=== PATIENT | female | born 1975 | race African-American/Black ===

== ENCOUNTER 2016-08-03 05:21 | Emergency (ER) | payer OTHER ==
[~2016-08-03] VITALS: Ht 152.4 cm; Wt 68.0 kg
[~2016-08-03 05:21] MED LIST: NAPROSYN500 MG PO; NOHOMEMEDICATIONS; TUSSIONEX PENN473 ML PO; ZOFRAN ODT4 MG PO; ZPAK PO
[2016-08-03 06:14] LABS: HEMATOCRIT 38.2 % (37.0-47.0); HEMOGLOBIN 13.2 gm/dL (12.0-15.0); MCH 30.3 pg (26.0-34.0); MCHC 34.4 % (28.0-37.0); MCV 87.9 fL (80.0-100.0); PLATELET COUNT 289 thou/uL (150-400); RBC 4.34 mil/uL (4.20-5.00); RDW 13.7 % (10.5-14.5); WBC 7.2 thou/uL (4.0-11.0)
[2016-08-03 06:24] LABS: CALCIUM 8.8 mg/dL (8.5-10.1); CREATININE 0.9 mg/dL (0.6-1.3); POTASSIUM 3.7 mmol/L (3.5-5.1)
[2016-08-03 06:25] LABS: ALBUMIN 3.7 g/dL (3.4-5.0); MANUAL DIFF YES; TOTAL BILIRUBIN 0.3 mg/dL (<0.1-1.0); TOTAL PROTEIN 7.5 g/dL (6.4-8.2)
[2016-08-03 06:42] LABS: URINE BILIRUBIN NEGATIVE (Negative); URINE BLOOD 3+ (Negative); URINE COLOR YELLOW; URINE GLUCOSE-RANDOM* NEGATIVE (Negative); URINE KETONES NEGATIVE (Negative); URINE LEUKOCYTES-REFLEX NEGATIVE (Negative); URINE PROTEIN (DIPSTICK) NEGATIVE (Negative); URINE UROBILINOGEN 0.2 E.U./dl (0.2-1.0)
[2016-08-03 06:50] LABS: AMP/METHAMP Negative (Negative); BARBITURATES Negative (Negative); BENZODIAZEPINES Negative (Negative); COCAINE Negative (Negative); METHADONE Negative (Negative); OPIATES Negative (Negative); PCP Negative (Negative); THC POSITIVE (Negative)
[2016-08-03 06:55] LABS: SQUAMOUS 0-3 Few /LPF (0-3); URINE WBC-REFLEX 0-5 Rare /HPF (0-5)
[2016-08-03 06:56] LABS: CASTS None Seen /LPF (None Seen); CRYSTALS None Seen /LPF (None Seen)
[2016-08-03] MEDS ORDERED: TORADOL 10 MG T10 MG PO (07:33)
[2016-08-03] MEDS ORDERED: ONDANSETRON HCL4 M2 PO (07:33)
[2016-08-03 07:36] LABS: ABSOLUTE NEUTROPHILS 3.5 thou/uL (1.4-8.2); TOTAL CELL COUNT 100
[2016-08-03 07:37] LABS: ANISOCYTOSIS SLIGHT
[2016-08-06 13:07] LABS: CHLAMYDIA TRACHOMATIS-PCR Negative (Negative); NEISSERIA GONORRHEA-PCR Negative (Negative)
== END 2016-08-03 08:08 | disposition home or self-care (01) ==
LOC: ER 05:21
PROVIDERS: Emergency Medicine
DX: R10.30 Lower abdominal pain, unspecified (principal); R11.2 Nausea with vomiting, unspecified; R19.7 Diarrhea, unspecified; Z98.890 Other specified postprocedural states; F17.210 Nicotine dependence, cigarettes, uncomplicated; F10.99 Alcohol use, unspecified with unspecified alcohol-induced disorder; F12.10 Cannabis abuse, uncomplicated

== ENCOUNTER 2017-06-06 16:43 | Emergency (ER) | payer OTHER ==
[~2017-06-06] VITALS: Ht 152.4 cm; Wt 64.0 kg
[~2017-06-06 16:43] MED LIST changes: +ONDANSETRON HCL4 M2 PO; +TORADOL 10 MG T10 MG PO
[2017-06-06 17:05] LABS: URINE BILIRUBIN NEGATIVE (Negative); URINE BLOOD 3+ (Negative); URINE COLOR YELLOW; URINE GLUCOSE-RANDOM* NEGATIVE (Negative); URINE KETONES NEGATIVE (Negative); URINE LEUKOCYTES-REFLEX NEGATIVE (Negative); URINE PROTEIN (DIPSTICK) NEGATIVE (Negative); URINE SPECIFIC GRAVITY 1.015 (1.003-1.035)
[2017-06-06 17:09] LABS: CASTS None Seen /LPF (None Seen); SQUAMOUS 4-10 Moderate /LPF (0-3); URINE WBC-REFLEX 0-5 Rare /HPF (0-5)
[2017-06-06 17:10] LABS: CRYSTALS None Seen /LPF (None Seen)
[2017-06-06 17:16] LABS: ABSOLUTE NEUTROPHILS 2.4 thou/uL (1.4-8.2); BASOPHILS 0.9 % (0.0-2.0); EOSINOPHILS 1.5 % (0.0-3.0); HEMATOCRIT 41.1 % (37.0-47.0); HEMOGLOBIN 13.6 gm/dL (12.0-15.0); LYMPHOCYTES 46.9 % (24.0-44.0); MCH 30.1 pg (26.0-34.0); MCHC 33.2 g/dL (28.0-37.0); MCV 90.6 fL (80.0-100.0); PLATELET COUNT 278 thou/uL (150-400); POLYS 40.7 % (36.0-66.0); RBC 4.54 mil/uL (4.20-5.00); RDW 13.8 % (10.5-14.5); WBC 5.9 thou/uL (4.0-11.0)
[2017-06-06 17:17] LABS: MANUAL DIFF NO
[2017-06-06 17:25] LABS: CALCIUM 9.1 mg/dL (8.5-10.1); CREATININE 0.8 mg/dL (0.6-1.0); POTASSIUM 3.8 mmol/L (3.5-5.1)
[2017-06-06 17:32] LABS: ALBUMIN 3.8 g/dL (3.4-5.0); TOTAL BILIRUBIN 0.3 mg/dL (<0.1-1.0); TOTAL PROTEIN 7.6 g/dL (6.4-8.2)
[2017-06-06] MEDS ORDERED: HYDROCODONE-AP1 EAC6 PO (18:21)
[2017-06-06] MEDS ORDERED: IBUPROFEN 600600 M1 PO (18:21)
[2017-06-06] MEDS ORDERED: ZOFRAN ODT4 M1 PO (18:26)
== END 2017-06-06 18:49 | disposition home or self-care (01) ==
LOC: ER 16:43
PROVIDERS: Physician Assistant
DX: R11.0 Nausea (principal)

== ENCOUNTER 2018-01-27 18:29 | Emergency (ER) | payer OTHER ==
[~2018-01-27] VITALS: Ht 162.6 cm; Wt 83.9 kg
--- NOTE | ~2018-01-27 | EKG ---
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
[~2018-01-27 18:29] MED LIST changes: +HYDROCODONE-AP1 EAC6 PO; +IBUPROFEN 600600 M1 PO; +ZOFRAN ODT4 M1 PO
[2018-01-27 18:45] LABS: URINE BILIRUBIN NEGATIVE (Negative); URINE BLOOD 3+ (Negative); URINE CLARITY CLEAR; URINE COLOR YELLOW; URINE GLUCOSE-RANDOM* NEGATIVE (Negative); URINE KETONES NEGATIVE (Negative); URINE LEUKOCYTES-REFLEX NEGATIVE (Negative); URINE NITRITE-REFLEX NEGATIVE (Negative); URINE PROTEIN (DIPSTICK) NEGATIVE (Negative); URINE UROBILINOGEN 0.2 E.U./dl (0.2-1.0)
[2018-01-27 19:02] LABS: CASTS None Seen /LPF (None Seen); CRYSTALS None Seen /LPF (None Seen); MUCUS 0-3 Light strn/LPF (None Seen); SQUAMOUS 0-3 Few /LPF (0-3); URINE WBC-REFLEX 0-5 Rare /HPF (0-5)
[2018-01-27 19:03] LABS: BACTERIA-REFLEX None Seen /HPF (None Seen); YEAST-REFLEX Present (None Seen)
[2018-01-27 19:09] LABS: ABSOLUTE NEUTROPHILS 3.6 thou/uL (1.4-8.2); BASOPHILS 1.3 % (0.0-2.0); EOSINOPHILS 1.1 % (0.0-3.0); HEMATOCRIT 41.9 % (37.0-47.0); HEMOGLOBIN 14.5 gm/dL (12.0-15.0); MCH 31.2 pg (26.0-34.0); MCHC 34.6 g/dL (28.0-37.0); MCV 90.1 fL (80.0-100.0); MONOCYTES 7.9 % (1.0-8.0); PLATELET COUNT 311 thou/uL (150-400); POLYS 46.7 % (36.0-66.0); RBC 4.65 mil/uL (4.20-5.00); RDW 14.5 % (10.5-14.5); WBC 7.7 thou/uL (4.0-11.0)
[2018-01-27 19:14] LABS: ANION GAP 11 mmol/L (7-16); BUN 13 mg/dL (7-18); CALCIUM 9.2 mg/dL (8.5-10.1); CHLORIDE 103 mmol/L (98-107); CO2 23 mmol/L (21-32); CREATININE 0.9 mg/dL (0.6-1.0); GLUCOSE 89 mg/dL (74-106); POTASSIUM 3.8 mmol/L (3.5-5.1); SODIUM 137 mmol/L (136-145)
[2018-01-27 19:22] LABS: ALBUMIN 4.2 g/dL (3.4-5.0); LIPASE 104 U/L (73-393); SGOT 16 U/L (15-37); SGPT 25 U/L (30-65); TOTAL BILIRUBIN 0.3 mg/dL (<0.1-1.0); TOTAL PROTEIN 8.4 g/dL (6.4-8.2); TROPONIN-I <0.06 ng/mL (<0.06)
[2018-01-27] MEDS ORDERED: DOXYCYCLINE 10100 MG PO (20:20)
[2018-01-27] MEDS ORDERED: FLAGYL500 MG PO (20:20)
[2018-01-27] MEDS ORDERED: NORCO 10-325 T1 EACH PO (20:22)
[2018-01-27] MEDS ORDERED: ONDANSETRON HCL4 M2 PO (20:22)
== END 2018-01-27 20:38 | disposition home or self-care (01) ==
LOC: ER 18:29
PROVIDERS: Physician Assistant
DX: N73.9 Female pelvic inflammatory disease, unspecified (principal); A59.9 Trichomoniasis, unspecified; B37.9 Candidiasis, unspecified; N83.202 Unspecified ovarian cyst, left side; F17.210 Nicotine dependence, cigarettes, uncomplicated; Z90.89 Acquired absence of other organs; Z98.890 Other specified postprocedural states

== ENCOUNTER 2018-04-07 08:22 | Emergency (ER) | payer OTHER ==
[~2018-04-07] VITALS: Ht 157.5 cm; Wt 63.5 kg
[~2018-04-07 08:22] MED LIST changes: +DOXYCYCLINE 10100 MG PO; +FLAGYL500 MG PO; +NORCO 10-325 T1 EACH PO
[2018-04-07 09:05] LABS: ABSOLUTE NEUTROPHILS 2.6 thou/uL (1.4-8.2); BASOPHILS 0.9 % (0.0-2.0); EOSINOPHILS 1.3 % (0.0-3.0); HEMATOCRIT 37.3 % (37.0-47.0); HEMOGLOBIN 12.6 gm/dL (12.0-15.0); LYMPHOCYTES 46.9 % (24.0-44.0); MCH 30.9 pg (26.0-34.0); MCHC 33.8 g/dL (28.0-37.0); MCV 91.5 fL (80.0-100.0); MONOCYTES 9.8 % (1.0-8.0); PLATELET COUNT 317 thou/uL (150-400); POLYS 41.1 % (36.0-66.0); RBC 4.08 mil/uL (4.20-5.00); RDW 14.4 % (10.5-14.5); WBC 6.3 thou/uL (4.0-11.0)
[2018-04-07 09:22] LABS: CALCIUM 8.6 mg/dL (8.5-10.1); POTASSIUM 3.4 mmol/L (3.5-5.1)
[2018-04-07 09:27] LABS: ALBUMIN 3.6 g/dL (3.4-5.0); TOTAL BILIRUBIN 0.2 mg/dL (<0.1-1.0); TOTAL PROTEIN 7.3 g/dL (6.4-8.2)
== END 2018-04-07 10:03 | disposition home or self-care (01) ==
LOC: ER 08:22
PROVIDERS: Emergency Medicine
DX: K62.5 Hemorrhage of anus and rectum (principal); F17.210 Nicotine dependence, cigarettes, uncomplicated; Z90.49 Acquired absence of other specified parts of digestive tract

== ENCOUNTER 2018-04-28 07:54 | Emergency (ER) | payer OTHER ==
[~2018-04-28] VITALS: Ht 162.6 cm; Wt 71.2 kg
--- NOTE | ~2018-04-28 | EKG ---
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
[2018-04-28 08:21] LABS: ABSOLUTE NEUTROPHILS 2.4 thou/uL (1.4-8.2); BASOPHILS 1.9 % (0.0-2.0); EOSINOPHILS 1.8 % (0.0-3.0); HEMATOCRIT 40.6 % (37.0-47.0); LYMPHOCYTES 48.8 % (24.0-44.0); MCH 31.1 pg (26.0-34.0); MCHC 34.5 g/dL (28.0-37.0); MCV 90.2 fL (80.0-100.0); MONOCYTES 7.1 % (1.0-8.0); PLATELET COUNT 327 thou/uL (150-400); POLYS 40.4 % (36.0-66.0); RBC 4.51 mil/uL (4.20-5.00); RDW 13.7 % (10.5-14.5)
[2018-04-28] MEDS ORDERED: NAPROSYN500 MG PO (08:26)
[2018-04-28 08:29] LABS: ANION GAP 9 mmol/L (7-16); BUN 11 mg/dL (7-18); CALCIUM 9.2 mg/dL (8.5-10.1); CHLORIDE 104 mmol/L (98-107); CO2 28 mmol/L (21-32); CREATININE 0.9 mg/dL (0.6-1.0); GLUCOSE 90 mg/dL (74-106); POTASSIUM 3.8 mmol/L (3.5-5.1); SODIUM 141 mmol/L (136-145)
[2018-04-28 08:38] LABS: ALBUMIN 3.7 g/dL (3.4-5.0); MAGNESIUM 1.8 mg/dL (1.8-2.4); SGOT 19 U/L (15-37); SGPT 28 U/L (30-65); TOTAL BILIRUBIN 0.2 mg/dL (<0.1-1.0); TOTAL PROTEIN 7.7 g/dL (6.4-8.2); TROPONIN-I <0.06 ng/mL (<0.06)
== END 2018-04-28 08:42 | disposition home or self-care (01) ==
LOC: ER 07:54
PROVIDERS: Emergency Medicine
DX: J20.9 Acute bronchitis, unspecified (principal); Z72.0 Tobacco use

== ENCOUNTER 2018-08-26 14:33 | Emergency (ER) | payer OTHER ==
[~2018-08-26] VITALS: Ht 167.6 cm; Wt 72.6 kg
[2018-08-26 15:00] LABS: ABSOLUTE NEUTROPHILS 3.2 thou/uL (1.4-8.2); BASOPHILS 1.2 % (0.0-2.0); EOSINOPHILS 0.6 % (0.0-3.0); HEMATOCRIT 40.8 % (37.0-47.0); HEMOGLOBIN 13.9 gm/dL (12.0-15.0); LYMPHOCYTES 46.1 % (24.0-44.0); MCH 30.9 pg (26.0-34.0); MCHC 33.9 g/dL (28.0-37.0); MONOCYTES 6.7 % (1.0-8.0); PLATELET COUNT 299 thou/uL (150-400); POLYS 45.4 % (36.0-66.0); RBC 4.49 mil/uL (4.20-5.00); RDW 14.4 % (10.5-14.5)
[2018-08-26 15:10] LABS: ANION GAP 12 mmol/L (7-16); BUN 8 mg/dL (7-18); CALCIUM 9.2 mg/dL (8.5-10.1); CHLORIDE 101 mmol/L (98-107); CO2 26 mmol/L (21-32); CREATININE 0.8 mg/dL (0.6-1.0); GLUCOSE 82 mg/dL (74-106); SODIUM 139 mmol/L (136-145)
[2018-08-26 15:19] LABS: ALBUMIN 4.1 g/dL (3.4-5.0); SGOT 45 U/L (15-37); SGPT 92 U/L (30-65); TOTAL BILIRUBIN 0.4 mg/dL (<0.1-1.0); TOTAL PROTEIN 7.9 g/dL (6.4-8.2); TROPONIN-I <0.06 ng/mL (<0.06)
[2018-08-26] MEDS ORDERED: KLOR-CON 1010 MEQ PO (16:14)
[2018-08-26] MEDS ORDERED: NAPROSYN500 MG PO (16:14)
[2018-08-26 16:23] VITALS: BP 138/57
--- NOTE | 2018-08-27 08:24 | EKG ---
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 : 1975 Requested By: Wandy Reese Order Number: [id number] MD: Buzz Zepeda Measurements Intervals [place] Rate: 81 P: 85 [place]: 161 QRS: 72 QRSD: 97 T: 56 QT: 416 QTc: 483 Interpretive Statements Sinus rhythm No significant abnormality Compared to ECG 04/28/2018 08:07:45 no significant change was found Electronically Signed On 08-27-2018 8:23:51 SCREEN PRINTING PASTER by Buzz Zepeda [email or web address] ��������������������������������������������� <ELECTRONICALLY SIGNED> ���������������������������������������� By: Buzz Zepeda MD, [facility] ��������������������������������������������� 08/27/18 0823 1440 1440 Buzz Zepeda MD, FACC /EPI
== END 2018-08-26 16:50 | disposition home or self-care (01) ==
LOC: ER 14:33
PROVIDERS: Physician Assistant
DX: R07.89 Other chest pain (principal); Z90.49 Acquired absence of other specified parts of digestive tract; Z98.890 Other specified postprocedural states; F17.210 Nicotine dependence, cigarettes, uncomplicated

== ENCOUNTER 2018-10-01 10:21 | Emergency (ER) | payer OTHER ==
[~2018-10-01] VITALS: Ht 152.4 cm; Wt 70.8 kg
[~2018-10-01 10:21] MED LIST changes: +KLOR-CON 1010 MEQ PO
[2018-10-01] MEDS ORDERED: TRIMETHOPRIM /P10 M1 OPHTHALMIC (11:48)
[2018-10-01 12:02] VITALS: BP 127/76
== END 2018-10-01 12:03 | disposition home or self-care (01) ==
LOC: ER 10:21
DX: H10.9 Unspecified conjunctivitis (principal); F17.210 Nicotine dependence, cigarettes, uncomplicated; Z90.49 Acquired absence of other specified parts of digestive tract; Z98.51 Tubal ligation status

== ENCOUNTER 2018-11-07 19:09 | Emergency (ER) | payer OTHER ==
[~2018-11-07] VITALS: Ht 152.4 cm; Wt 70.8 kg
[~2018-11-07 19:09] MED LIST changes: +TRIMETHOPRIM /P10 M1 OPHTHALMIC
[2018-11-07] MEDS ORDERED: UNISOM25 MG PO (20:04)
[2018-11-07 22:24] LABS: ABSOLUTE NEUTROPHILS 2.5 thou/uL (1.4-8.2); BASOPHILS 0.7 % (0.0-2.0); EOSINOPHILS 2.1 % (0.0-3.0); HEMATOCRIT 40.2 % (37.0-47.0); HEMOGLOBIN 13.8 gm/dL (12.0-15.0); LYMPHOCYTES 48.8 % (24.0-44.0); MCHC 34.3 g/dL (28.0-37.0); MCV 90.2 fL (80.0-100.0); MONOCYTES 8.2 % (1.0-8.0); PLATELET COUNT 342 thou/uL (150-400); POLYS 40.2 % (36.0-66.0); RBC 4.46 mil/uL (4.20-5.00); WBC 6.3 thou/uL (4.0-11.0)
[2018-11-07 23:55] LABS: CALCIUM 8.7 mg/dL (8.5-10.1); CREATININE 0.9 mg/dL (0.6-1.0); POTASSIUM 3.1 mmol/L (3.5-5.1)
[2018-11-08 02:05] VITALS: BP 135/81
== END 2018-11-08 02:05 | disposition home or self-care (01) ==
LOC: ER 19:09
PROVIDERS: Physician Assistant
DX: E04.1 Nontoxic single thyroid nodule (principal); E87.6 Hypokalemia; F17.210 Nicotine dependence, cigarettes, uncomplicated; Z90.49 Acquired absence of other specified parts of digestive tract

== ENCOUNTER 2018-11-15 08:14 | Emergency (ER) | payer OTHER ==
[~2018-11-15] VITALS: Ht 152.4 cm; Wt 70.8 kg
[2018-11-15 08:14] VITALS: BP 128/74
[~2018-11-15 08:14] MED LIST changes: +UNISOM25 MG PO
[2018-11-15] MEDS ORDERED: VALTREX1000 MG PO (08:38)
== END 2018-11-15 08:46 | disposition home or self-care (01) ==
LOC: ER 08:14
DX: B00.1 Herpesviral vesicular dermatitis (principal); F17.210 Nicotine dependence, cigarettes, uncomplicated; Z98.890 Other specified postprocedural states; Z90.49 Acquired absence of other specified parts of digestive tract

== ENCOUNTER 2019-03-24 09:54 | Emergency (ER) | payer OTHER ==
[~2019-03-24] VITALS: Ht 152.4 cm; Wt 65.8 kg
[~2019-03-24 09:54] MED LIST changes: +VALTREX1000 MG PO
[2019-03-24 10:21] LABS: ABSOLUTE NEUTROPHILS 3.8 thou/uL (1.4-8.2); EOSINOPHILS 0.9 % (0.0-3.0); HEMATOCRIT 42.4 % (37.0-47.0); HEMOGLOBIN 14.2 gm/dL (12.0-15.0); LYMPHOCYTES 39.8 % (24.0-44.0); MCHC 33.4 g/dL (28.0-37.0); MCV 92.8 fL (80.0-100.0); MONOCYTES 8.5 % (1.0-8.0); PLATELET COUNT 356 thou/uL (150-400); POLYS 49.8 % (36.0-66.0); RBC 4.57 mil/uL (4.20-5.00); RDW 14.3 % (10.5-14.5); WBC 7.7 thou/uL (4.0-11.0)
[2019-03-24 10:49] LABS: ANION GAP 11 mmol/L (7-16); BUN 7 mg/dL (7-18); CALCIUM 9.1 mg/dL (8.5-10.1); CHLORIDE 103 mmol/L (98-107); CO2 26 mmol/L (21-32); CREATININE 0.9 mg/dL (0.6-1.0); GLUCOSE 80 mg/dL (74-106); POTASSIUM 3.2 mmol/L (3.5-5.1); SODIUM 140 mmol/L (136-145)
[2019-03-24 10:59] LABS: SGOT 21 U/L (15-37); SGPT 19 U/L (30-65); TOTAL BILIRUBIN 0.4 mg/dL (<0.1-1.0); TOTAL PROTEIN 7.8 g/dL (6.4-8.2); TROPONIN-I <0.06 ng/mL (<0.06)
[2019-03-24 12:41] VITALS: BP 117/63
--- NOTE | 2019-03-24 14:17 | EKG ---
[address] [address] ELECTROCARDIOGRAM REPORT Name: TABITHA BRANDON 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 : 1975 Requested By: Bonnie Coronel Order Number: [id number] MD: Humberto Luis Measurements Intervals [place] Rate: 73 P: 75 [place]: 166 QRS: 88 QRSD: 94 T: 60 QT: 412 QTc: 454 Interpretive Statements Sinus rhythm Atrial premature complex Left atrial enlargement Compared to ECG 08/26/2018 14:40:25 Atrial premature complex(es) now present Atrial abnormality now present Electronically Signed On 03-24-2019 14:17:34 CDT by Humberto Luis [email or web address] ��������������������������������������������� <ELECTRONICALLY SIGNED> ���������������������������������������� By: Humberto Luis MD ��������������������������������������������� 03/24/19 1417 0956 0956 Humberto Luis MD /DAMIR
== END 2019-03-24 13:35 | disposition home or self-care (01) ==
LOC: ER 09:54
PROVIDERS: Emergency Medicine
DX: R07.89 Other chest pain (principal); I95.1 Orthostatic hypotension; R42 Dizziness and giddiness; F17.210 Nicotine dependence, cigarettes, uncomplicated; Z98.51 Tubal ligation status; Z98.890 Other specified postprocedural states; Z90.49 Acquired absence of other specified parts of digestive tract

== ENCOUNTER 2019-12-31 12:17 | Emergency (ER) | payer OTHER ==
[~2019-12-31] VITALS: Ht 152.4 cm; Wt 75.8 kg
[2019-12-31 13:17] LABS: HEMATOCRIT 37.2 % (37.0-47.0); HEMOGLOBIN 12.9 gm/dL (12.0-15.0); MCH 32.2 pg (26.0-34.0); MCHC 34.7 g/dL (28.0-37.0); MCV 92.8 fL (80.0-100.0); WBC 6.9 thou/uL (4.0-11.0)
[2019-12-31 13:37] LABS: CALCIUM 8.5 mg/dL (8.5-10.1); URIC ACID* 4.8 mg/dL (2.6-6.0)
[2019-12-31 13:40] LABS: POTASSIUM 2.7 mmol/L (3.5-5.1)
[2019-12-31] MEDS ORDERED: POTASSIUM20 PO (14:02)
[2019-12-31] MEDS ORDERED: NORCO 5-325 TA1 EAC1 PO (14:02)
[2019-12-31 14:14] VITALS: BP 126/75
== END 2019-12-31 14:16 | disposition home or self-care (01) ==
LOC: ER 12:17
PROVIDERS: Physician Assistant
DX: M79.671 Pain in right foot (principal); E87.6 Hypokalemia; F17.210 Nicotine dependence, cigarettes, uncomplicated; Z90.49 Acquired absence of other specified parts of digestive tract

== ENCOUNTER 2020-03-13 09:50 | Emergency (ER) | payer OTHER ==
[~2020-03-13] VITALS: Ht 152.4 cm; Wt 65.8 kg
[~2020-03-13 09:50] MED LIST changes: +NORCO 5-325 TA1 EAC1 PO; +POTASSIUM20 PO
[2020-03-13] MEDS ORDERED: MOBIC15 MG PO (10:48)
[2020-03-13] MEDS ORDERED: CYCLOBENZAPRINE5 MG PO (10:48)
[2020-03-13] MEDS ORDERED: NORCO 5-325 TA1 EAC2 PO (10:48)
[2020-03-13 11:02] VITALS: BP 119/70
== END 2020-03-13 11:03 | disposition home or self-care (01) ==
LOC: ER 09:50
DX: S39.012A Strain of muscle, fascia and tendon of lower back, initial encounter (principal); F17.210 Nicotine dependence, cigarettes, uncomplicated; Z98.51 Tubal ligation status; Z98.890 Other specified postprocedural states; Z90.49 Acquired absence of other specified parts of digestive tract; X58.XXXA Exposure to other specified factors, initial encounter; Y93.89 Activity, other specified; Y92.89 Other specified places as the place of occurrence of the external cause; Y99.8 Other external cause status

== ENCOUNTER 2020-06-05 09:55 | Emergency (ER) | payer OTHER ==
[~2020-06-05] VITALS: Ht 162.6 cm; Wt 90.7 kg
[~2020-06-05 09:55] MED LIST changes: +CYCLOBENZAPRINE5 MG PO; +MOBIC15 MG PO; +NORCO 5-325 TA1 EAC2 PO
[2020-06-05 10:48] LABS: CREATININE 0.9 mg/dL (0.6-1.0); POTASSIUM 4.2 mmol/L (3.5-5.1)
[2020-06-05 10:54] LABS: ALBUMIN 3.5 g/dL (3.4-5.0); TOTAL BILIRUBIN 0.4 mg/dL (0.2-1.0); TOTAL PROTEIN 7.5 g/dL (6.4-8.2)
[2020-06-05 12:27] LABS: HEMATOCRIT 39.1 % (37.0-47.0); MCH 29.8 pg (26.0-34.0); MCHC 33.2 g/dL (28.0-37.0); PLATELET COUNT 305 thou/uL (150-400); RBC 4.34 mil/uL (4.20-5.00); RDW 15.5 % (10.5-14.5); WBC 3.9 thou/uL (4.0-11.0)
[2020-06-05 13:04] VITALS: BP 99/55
[2020-06-05 13:20] LABS: ABSOLUTE NEUTROPHILS 1.7 thou/uL (1.4-8.2); PLATELET ESTIMATE NORMAL
== END 2020-06-05 13:07 | disposition home or self-care (01) ==
LOC: ER 09:55
PROVIDERS: Emergency Medicine
DX: U07.1 COVID-19 (principal); R11.2 Nausea with vomiting, unspecified; F17.210 Nicotine dependence, cigarettes, uncomplicated; Z98.51 Tubal ligation status; Z98.890 Other specified postprocedural states; Z90.49 Acquired absence of other specified parts of digestive tract

== ENCOUNTER 2020-12-07 10:36 | Emergency (ER) | payer BC ==
[~2020-12-07] VITALS: Ht 157.5 cm; Wt 61.7 kg
[2020-12-07 11:11] LABS: ABSOLUTE NEUTROPHILS 3.5 thou/uL (1.4-8.2); BASOPHILS 1.1 % (0.0-2.0); EOSINOPHILS 0.9 % (0.0-3.0); HEMATOCRIT 40.1 % (37.0-47.0); HEMOGLOBIN 13.4 gm/dL (12.0-15.0); LYMPHOCYTES 41.7 % (24.0-44.0); MCH 31.1 pg (26.0-34.0); MCHC 33.4 g/dL (28.0-37.0); MCV 93.1 fL (80.0-100.0); MONOCYTES 8.7 % (1.0-8.0); PLATELET COUNT 309 thou/uL (150-400); POLYS 47.6 % (36.0-66.0); RDW 13.6 % (10.5-14.5); WBC 7.4 thou/uL (4.0-11.0)
[2020-12-07 11:24] LABS: ANION GAP 11 mmol/L (7-16); BUN 10 mg/dL (7-18); CALCIUM 9.2 mg/dL (8.5-10.1); CHLORIDE 101 mmol/L (98-107); CO2 25 mmol/L (21-32); GLUCOSE 96 mg/dL (74-106); POTASSIUM 3.4 mmol/L (3.5-5.1); SODIUM 137 mmol/L (136-145)
[2020-12-07 11:36] LABS: ALBUMIN 3.8 g/dL (3.4-5.0); SGOT 19 U/L (15-37); SGPT 34 U/L (14-59); TOTAL BILIRUBIN 0.5 mg/dL (0.2-1.0); TOTAL PROTEIN 7.8 g/dL (6.4-8.2); TROPONIN-I <0.06 ng/mL (<0.06)
[2020-12-07] MEDS ORDERED: FLEXERIL PO (11:48)
[2020-12-07 12:29] VITALS: BP 135/95
--- NOTE | 2020-12-07 13:03 | EKG ---
[place] [address] [facility] [place] [address] ELECTROCARDIOGRAM REPORT Name: BRANDONTABITHA 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: BRITTANEY : 1975 Requested By: Elie Soto Order Number: [id number] MD: Lyle Montano Measurements Intervals [place] Rate: 93 P: 81 [place]: 148 QRS: 42 QRSD: 94 T: 35 QT: 367 QTc: 457 Interpretive Statements Sinus rhythm Biatrial enlargement Baseline wander in lead(s) V6 Compared to ECG 03/24/2019 09:56:09 Atrial premature complex(es) no longer present Electronically Signed On 12-07-2020 13:02:48 CDT by Lyle Montano [email or web address] <ELECTRONICALLY SIGNED> By: Lyle Montano MD, [facility] 12/07/20 1302 1047 1047 Lyle Montano MD, [facility] /EPI
== END 2020-12-07 12:29 | disposition home or self-care (01) ==
LOC: ER 10:36
PROVIDERS: Emergency Medicine
DX: R07.89 Other chest pain (principal); F17.210 Nicotine dependence, cigarettes, uncomplicated; Z90.49 Acquired absence of other specified parts of digestive tract; Z98.890 Other specified postprocedural states

== ENCOUNTER 2021-04-19 09:30 | Emergency (ER) | payer OTHER ==
[~2021-04-19] VITALS: Ht 152.4 cm; Wt 66.2 kg
[~2021-04-19 09:30] MED LIST changes: +FLEXERIL PO
[2021-04-19 09:49] LABS: URINE BILIRUBIN NEGATIVE (Negative); URINE BLOOD 3+ (Negative); URINE CLARITY SL CLOUDY; URINE COLOR YELLOW; URINE GLUCOSE-RANDOM* NEGATIVE (Negative); URINE KETONES TRACE (Negative); URINE NITRITE-REFLEX NEGATIVE (Negative); URINE PROTEIN (DIPSTICK) NEGATIVE (Negative); URINE SPECIFIC GRAVITY >= 1.030 (1.005-1.035); URINE UROBILINOGEN 0.2 E.U./dl (0.2-1.0)
[2021-04-19 09:53] LABS: URINE LEUKOCYTES-REFLEX 1+ (Negative)
[2021-04-19 10:05] LABS: CASTS None Seen /LPF (None Seen); MUCUS 4-6 Moderate strn/LPF (None Seen); SQUAMOUS >10 Many /LPF (0-3)
[2021-04-19 10:06] LABS: URINE RBC 3-10 Few /HPF (NONE SEEN); URINE WBC-REFLEX 6-15 Few /HPF (0-5)
[2021-04-19 10:06] LABS: ABSOLUTE NEUTROPHILS 3.5 thou/uL (1.4-8.2); BASOPHILS 1.1 % (0.0-2.0); EOSINOPHILS 1.3 % (0.0-3.0); HEMATOCRIT 37.7 % (37.0-47.0); HEMOGLOBIN 12.8 gm/dL (12.0-15.0); LYMPHOCYTES 44.1 % (24.0-44.0); MCH 31.6 pg (26.0-34.0); MCV 92.9 fL (80.0-100.0); MONOCYTES 7.2 % (1.0-8.0); PLATELET COUNT 348 thou/uL (150-400); POLYS 46.3 % (36.0-66.0); RBC 4.06 mil/uL (4.20-5.00); RDW 13.5 % (10.5-14.5); WBC 7.5 thou/uL (4.0-11.0)
[2021-04-19 10:07] LABS: CRYSTALS None Seen /LPF (None Seen)
[2021-04-19 10:20] LABS: CALCIUM 8.4 mg/dL (8.5-10.1); POTASSIUM 3.6 mmol/L (3.5-5.1)
[2021-04-19 10:26] LABS: ALBUMIN 3.8 g/dL (3.4-5.0); TOTAL BILIRUBIN 0.5 mg/dL (0.2-1.0); TOTAL PROTEIN 7.4 g/dL (6.4-8.2)
[2021-04-19] MEDS ORDERED: CEPHALEXIN500 MG PO (11:36)
[2021-04-19 12:00] VITALS: BP 127/76
== END 2021-04-19 12:00 | disposition home or self-care (01) ==
LOC: ER 09:30
PROVIDERS: Emergency Medicine
DX: N39.0 Urinary tract infection, site not specified (principal); R10.32 Left lower quadrant pain; F17.210 Nicotine dependence, cigarettes, uncomplicated; Z90.49 Acquired absence of other specified parts of digestive tract; Z98.890 Other specified postprocedural states

== ENCOUNTER 2021-06-27 01:24 | Emergency (ER) | payer OTHER ==
[~2021-06-27] VITALS: Ht 152.4 cm; Wt 70.3 kg
[~2021-06-27 01:24] MED LIST changes: +CEPHALEXIN500 MG PO
[2021-06-27 02:04] LABS: ABSOLUTE NEUTROPHILS 4.5 thou/uL (1.4-8.2); BASOPHILS 0.9 % (0.0-2.0); EOSINOPHILS 0.7 % (0.0-3.0); HEMATOCRIT 37.8 % (37.0-47.0); HEMOGLOBIN 12.8 gm/dL (12.0-15.0); LYMPHOCYTES 41.1 % (24.0-44.0); MCHC 33.9 g/dL (28.0-37.0); MCV 91.4 fL (80.0-100.0); MONOCYTES 6.2 % (1.0-8.0); PLATELET COUNT 335 thou/uL (150-400); POLYS 51.1 % (36.0-66.0); RBC 4.14 mil/uL (4.20-5.00); RDW 13.9 % (10.5-14.5); WBC 8.8 thou/uL (4.0-11.0)
[2021-06-27 02:07] LABS: CALCIUM 8.9 mg/dL (8.5-10.1); CREATININE 0.8 mg/dL (0.6-1.0); POTASSIUM 3.6 mmol/L (3.5-5.1)
[2021-06-27 02:17] LABS: TOTAL BILIRUBIN 0.2 mg/dL (0.2-1.0); TOTAL PROTEIN 7.9 g/dL (6.4-8.2)
[2021-06-27 04:36] VITALS: BP 101/58
--- NOTE | 2021-06-27 07:21 | EKG ---
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: : 1975 Requested By: Elie Soto Order Number: [id number] MD: Lyle Montano Measurements Intervals [place] Rate: 97 P: 65 [place]: 176 QRS: 29 QRSD: 83 T: 27 QT: 362 QTc: 460 Interpretive Statements Sinus rhythm Probable left atrial enlargement Compared to ECG 12/07/2020 10:47:04 No significant changes Electronically Signed On 06-27-2021 7:21:09 NITROGLYCERIN SUPERVISOR by Lyle Montano [email or web address] <ELECTRONICALLY SIGNED> By: Lyle Montano MD, [facility] 06/27/21720 0135 0135 Lyle Montano MD, FACC /EPI
== END 2021-06-27 05:10 | disposition home or self-care (01) ==
LOC: ER 01:24
PROVIDERS: Emergency Medicine
DX: J06.9 Acute upper respiratory infection, unspecified (principal); Z20.822 Contact with and (suspected) exposure to COVID-19; R42 Dizziness and giddiness; F12.90 Cannabis use, unspecified, uncomplicated; F17.210 Nicotine dependence, cigarettes, uncomplicated; Z98.51 Tubal ligation status; Z98.890 Other specified postprocedural states

== ENCOUNTER 2021-08-22 09:47 | Emergency (ER) | payer OTHER ==
[~2021-08-22] VITALS: Ht 152.4 cm; Wt 69.8 kg
[2021-08-22 11:51] VITALS: BP 122/81
[2021-08-22] MEDS ORDERED: METHOCARBAMOL500 M2 PO (12:28)
[2021-08-22] MEDS ORDERED: NAPROSYN500 MG PO (12:28)
[2021-08-22] MEDS ORDERED: PREDNISONE 10 M10 MG PO (12:28)
== END 2021-08-22 12:51 | disposition home or self-care (01) ==
LOC: ER 09:47
DX: M48.061 Spinal stenosis, lumbar region without neurogenic claudication (principal); M51.9 Unspecified thoracic, thoracolumbar and lumbosacral intervertebral disc disorder; F17.210 Nicotine dependence, cigarettes, uncomplicated; F12.90 Cannabis use, unspecified, uncomplicated; Z98.51 Tubal ligation status; Z98.890 Other specified postprocedural states; Z90.49 Acquired absence of other specified parts of digestive tract; Z79.899 Other long term (current) drug therapy